=== PATIENT | male | born 1970 | race Hispanic/Latino ===

== ENCOUNTER 2018-01-23 01:10 | Emergency (ER) | payer BC ==
[2018-01-23] MEDS ORDERED: Ketorolac Tromethamine 60 MG/2 ML VIAL ONE (02:18)
[2018-01-23] MEDS ORDERED: Dexamethasone 10 MG/ML VIAL ONE (02:18)
--- NOTE | 2018-01-23 07:44 | RAD ---
LUMBAR SPINE SERIES THREE VIEWS: History: Low back pain that radiates to the left leg. FINDINGS: Vertebral bodies are normal in height. Degenerative osteophytes are seen in the lower lumbar spine. M inimal disc narrowing at L4-5. Pedicles appear intact. IMPRESSION: Mild arthritic changes of the spine. POS: [facility]
== END 2018-01-23 02:39 | disposition home or self-care (01) ==
LOC: ERS 01:10
DX: M54.16 Radiculopathy, lumbar region (principal); X50.9XXA Other and unspecified overexertion or strenuous movements or postures, initial encounter
CPT/HCPCS: 72100; J1100; J1885

== ENCOUNTER 2019-04-08 05:19 | Emergency (ER) | payer BC, OTHER ==
[2019-04-08] MEDS ORDERED: Aspirin Chewable 81 MG TAB ONE (05:52)
[2019-04-08 06:05] LABS: #Eosinphils 0.2 thou/uL (0.0-0.7); #Lymphocytes 2.8 thou/uL (1.20-3.40); #Monocytes 0.4 thou/uL (0.11-0.59); #Neutrophils 5.2 thou/uL (1.40-6.50); %Basophils 0.4 % (0.0-1.0); %Eosinophils 2.5 % (0.0-10.0); %Lymphocytes 31.8 % (21.0-51.0); %Monocytes 5.1 % (0.0-10.0); %Neutrophils 60.3 % (42.0-75.0); Hemoglobin 14.5 g/dL (14.0-18.0); Mean Corpuscular HGB CONC 32.4 g/dL (32.0-36.0); Mean Corpuscular Hemoglobin 29.6 pg (27.0-31.0); Mean Corpuscular Volume 91.3 fL (78.0-98.0); Mean Platelet Volume 7.2 fL (7.4-10.4); Platelet Count 282 thou/uL (130-400); RBC Distribution Width 12.1 % (11.5-14.5); Red Blood Cell (RBC) Count 4.89 mill/uL (4.70-6.10); White Blood Cell (WBC) Count 8.7 thou/uL (4.8-10.8)
[2019-04-08 06:27] LABS: ALT (SGPT) 19 U/L (8-55); AST (SGOT) 15 U/L (5-34); Alkaline Phosphatase 85 U/L (40-110); Anion Gap 12 mmol/L (10-20); BUN (Urea Nitrogen) 15 mg/dL (8.9-20.6); Bilirubin, Total 0.7 mg/dL (0.2-1.2); CK (CPK) 388 U/L (30-200); Calc. Creatinine Clearance 0 mL/min (70-130); Calcium 8.8 mg/dL (7.8-10.44); Carbon Dioxide 25 mmol/L (22-29); Chloride 107 mmol/L (98-107); Estimated GFR-MDRD 86; Globulin 3.1 g/dL (2.4-3.5); Glucose 145 mg/dL (70-105); Lipase 41 U/L (8-78); Potassium 3.4 mmol/L (3.5-5.1); Protein, Total 7.1 g/dL (6.0-8.3); Sodium 141 mmol/L (136-145)
--- NOTE | 2019-04-08 07:11 | CT ---
CTA CHEST WITH CONTRAST: Date: 04/08/2019 COMPARISON: None. HISTORY: Chest pain that started around midnight on the left side of the chest. TECHNIQUE: Multiple contiguous axial images were obtained in a CTA of the chest with contrast per pulmonary embo lism protocol. 3D oblique MIP reformats and direct coronal reformats were performed. FINDINGS: The pulmonary arteries are well opacified without filling defects to suggest pulmonary emboli. The he art is normal in size without focal cardiac abnormality. No hilar or mediastinal lymphadenopathy are seen. No pneumothorax or pleural effusions seen. No infiltrates are seen in the lungs. No suspicious pulmon brett nodules are seen. The visualized subdiaphragmatic structures are unremarkable. The bones and chest wall soft tissues ar e unremarkable. IMPRESSION: No evidence of pulmonary thromboembolism. POS: [facility]
--- NOTE | 2019-04-08 07:34 | RAD ---
EXAM: Single view of the chest HISTORY: Chest pain COMPARISON: None FINDINGS: Single view of the chest shows a normal sized cardiomediastinal silhouette. There is no marianela dence of consolidation, mass, or pleural effusion. The bones are unremarkable. IMPRESSION: No evidence of acute cardiopulmonary disease
[2019-04-08] MEDS ORDERED: Iopamidol-370 76% 500 ML 1 ML ONE (13:54)
--- NOTE | 2019-04-12 17:34 | EKG ---
Test Reason : Blood Pressure : / mmHG Vent. Rate : 073 BPM Atrial Rate : 073 BPM P-R Int : 174 ms QRS Dur : 082 ms QT Int : 398 ms P-R-T Axes : 038 041 016 degrees QTc Int : 438 ms Normal sinus rhythm with sinus arrhythmia Possible Left atrial enlargement Borderline ECG Confirmed by CARLEEN ROCK M.D. ([id number]), production editor MADDIE LING ([id number] on 04/12/2019 5:34:05 PM Referred By: Confirmed By:CARLEEN ROCK M.D.
== END 2019-04-08 06:58 | disposition home or self-care (01) ==
LOC: ERS 05:19
DX: R07.9 Chest pain, unspecified (principal); E11.9 Type 2 diabetes mellitus without complications; I10 Essential (primary) hypertension
CPT/HCPCS: 71045; 71275; 80053; 82550; 83690; 84484; 85025; 93005; Q9967

== ENCOUNTER 2019-07-29 11:38 | Emergency (ER) | payer OTHER ==
[2019-07-29 22:23] LABS: SARS-CoV-2 MS2 Positive; SARS-CoV-2 N Gene Negative; SARS-CoV-2 S Gene Negative; SARS-CoV-2 orf1ab Negative
== END 2019-07-29 13:23 | disposition home or self-care (01) ==
LOC: ERS 11:38
DX: Z20.828 Contact with and (suspected) exposure to other viral communicable diseases (principal); E11.9 Type 2 diabetes mellitus without complications; I10 Essential (primary) hypertension
CPT/HCPCS: 87635; 99283; U0003

== ENCOUNTER 2019-08-24 12:03 | Emergency (ER) | payer OTHER ==
[2019-08-25 13:56] LABS: SARS-CoV-2 MS2 Positive; SARS-CoV-2 N Gene Negative; SARS-CoV-2 S Gene Negative; SARS-CoV-2 orf1ab Negative
== END 2019-08-24 12:32 | disposition home or self-care (01) ==
LOC: ERS 12:03
DX: Z20.828 Contact with and (suspected) exposure to other viral communicable diseases (principal); E11.9 Type 2 diabetes mellitus without complications; I10 Essential (primary) hypertension
CPT/HCPCS: 87635; 99283; U0003

== ENCOUNTER 2023-05-02 03:40 | Emergency (ER) | payer OTHER ==
[2023-05-02] MEDS ORDERED: Ondansetron PF 4 MG/2 ML Vial ONE (03:53)
[2023-05-02] MEDS ORDERED: Ketorolac Tromethamine 30 MG (1 mL) VIAL ONE (03:53)
[2023-05-02 04:00] LABS: #Eosinphils 0.2 thou/uL (0.0-0.7); #Monocytes 0.6 thou/uL (0.11-0.59); #Neutrophils 6.5 thou/uL (1.40-6.50); %Basophils 0.4 % (0.0-1.0); %Eosinophils 2.2 % (0.0-10.0); %Lymphocytes 27.7 % (21.0-51.0); %Monocytes 5.4 % (0.0-10.0); Hematocrit 47.1 % (42.0-52.0); Mean Corpuscular Hemoglobin 29.9 pg (27.0-31.0); Mean Platelet Volume 9.2 fL (7.4-10.4); Platelet Count 311 10x3/uL (130-400); Red Blood Cell (RBC) Count 5.35 mill/uL (4.70-6.10); White Blood Cell (WBC) Count 10.2 10x3/uL (4.8-10.8)
[2023-05-02] MEDS ORDERED: Morphine 4 MG/ML VIAL ONE (04:22)
[2023-05-02 04:25] LABS: ALT (SGPT) 16 U/L (8-55); AST (SGOT) 16 U/L (5-34); Albumin 4.5 g/dL (3.5-5.0); Alkaline Phosphatase 117 U/L (40-110); Anion Gap 13 mmol/L (10-20); BUN (Urea Nitrogen) 9 mg/dL (8.4-25.7); Bilirubin, Total 0.6 mg/dL (0.2-1.2); Calc. Creatinine Clearance 0 mL/min (70-130); Calcium 9.3 mg/dL (7.8-10.44); Carbon Dioxide 26 mmol/L (22-29); Chloride 102 mmol/L (98-107); Estimated GFR 103; Globulin 3.4 g/dL (2.4-3.5); Glucose 143 mg/dL (70-105); Potassium 3.7 mmol/L (3.5-5.1); Protein, Total 7.9 g/dL (6.0-8.3); Sodium 137 mmol/L (136-145)
[2023-05-02 05:43] LABS: Bacteria/HPF None Seen HPF (None Seen); Bilirubin Negative (Negative); Blood, Urine Negative (Negative); CAUTI Indications for Culture Pelvic or flank pain; Clarity Clear (Clear); Glucose, Urine (Dipstick) Normal (Negative); Ketone, Urine Negative (Negative); Leukocyte Negative Leu/uL (Negative); Nitrite Negative (Negative); Protein, Urine (Dipstick) 10 mg/dL (Neg-Trace); RBC/HPF 0-3 HPF (0-3); Specific Gravity, Urine 1.026 (1.002-1.036); Squamous Epithelial 0-3 HPF (0-3); WBC/HPF 0-3 HPF (0-3); pH, Urine 5.5 (5.0-9.0)
[2023-05-02 05:49] LABS: Urine Culture Reflex No No
== END 2023-05-02 06:03 | disposition home or self-care (01) ==
LOC: ERS 03:40
DX: R10.9 Unspecified abdominal pain (principal); R11.2 Nausea with vomiting, unspecified; Z55.6 Problems related to health literacy; Z87.19 Personal history of other diseases of the digestive system
CPT/HCPCS: 74176; 80053; 81001; 85025; 96361; 96374; 96375; J1885; J2270; J2405

== ENCOUNTER 2023-05-02 19:57 | Inpatient (IN) | payer OTHER ==
[2023-05-02 22:42] LABS: #Monocytes 0.9 thou/uL (0.11-0.59); #Neutrophils 13.2 thou/uL (1.40-6.50); %Basophils 0.3 % (0.0-1.0); %Lymphocytes 6.6 % (21.0-51.0); %Monocytes 5.6 % (0.0-10.0); %Neutrophils 87.2 % (42.0-75.0); Hematocrit 45.4 % (42.0-52.0); Hemoglobin 15.6 g/dL (14.0-18.0); Mean Corpuscular HGB CONC 34.4 g/dL (32.0-36.0); Mean Corpuscular Hemoglobin 29.7 pg (27.0-31.0); Mean Corpuscular Volume 86.5 fl (78.0-98.0); Platelet Count 273 10x3/uL (130-400); RBC Distribution Width 12.9 % (11.5-14.5); Red Blood Cell (RBC) Count 5.25 mill/uL (4.70-6.10); White Blood Cell (WBC) Count 15.1 10x3/uL (4.8-10.8)
[2023-05-02] MEDS ORDERED: Ondansetron PF 4 MG/2 ML Vial ONE (22:57)
[2023-05-02] MEDS ORDERED: Morphine 4 MG/ML VIAL ONE (22:57)
[2023-05-02 23:03] LABS: Troponin I Less than 0.010 ng/mL (< 0.028)
[2023-05-02 23:05] LABS: ALT (SGPT) 15 U/L (8-55); AST (SGOT) 17 U/L (5-34); Albumin 4.4 g/dL (3.5-5.0); Alkaline Phosphatase 103 U/L (40-110); Anion Gap 12 mmol/L (10-20); BUN (Urea Nitrogen) 8 mg/dL (8.4-25.7); Calc. Creatinine Clearance 0 mL/min (70-130); Calcium 9.4 mg/dL (7.8-10.44); Carbon Dioxide 25 mmol/L (22-29); Chloride 104 mmol/L (98-107); Estimated GFR 104; Globulin 3.4 g/dL (2.4-3.5); Glucose 166 mg/dL (70-105); Lipase 21 U/L (8-78); Protein, Total 7.8 g/dL (6.0-8.3); Sodium 137 mmol/L (136-145)
[2023-05-03] MEDS ORDERED: Piperacillin/Tazobactam 3.375 GM VIAL ONE (00:54)
[2023-05-03] MEDS ORDERED: Sodium Chloride 0.9% 100 ML ONE (00:54)
[2023-05-03] MEDS ORDERED: Ondansetron PF 4 MG/2 ML Vial IVP PRN ×2 (02:30→19:39)
[2023-05-03] MEDS: Morphine 4 MG/ML VIAL SLOW IVP PRN (02:41)
[2023-05-03] MEDS: Lactated Ringer's 1,000 ML IV SCH ×2 (02:45→20:33)
[2023-05-03] MEDS: Piperacillin/Tazobactam 3.375 GM in Sodium Chloride 0.9% 100 ML IVPB SCH ×2 (05:28→12:43)
[2023-05-03] MEDS: Ketorolac Tromethamine 30 MG (1 mL) VIAL IVP PRN (12:44)
[2023-05-03] MEDS ORDERED: PROPOFOL 20 ML ONE (14:12)
[2023-05-03] MEDS ORDERED: fentaNYL PF 100 MCG/2 ML SYRINGE ONE (14:12)
[2023-05-03] MEDS ORDERED: EPINEPHrine 1 MG/ML VIAL ONE (14:13)
[2023-05-03] MEDS ORDERED: Bupivacaine 0.25% HCL 30 ML VIAL ONE (14:13)
[2023-05-03] MEDS ORDERED: SUGAMMADEX SODIUM 200 MG/2 ML VIAL ONE (17:52)
[2023-05-03] MEDS ORDERED: PHENYLEPHRINE-NS 100 MCG/ML 10 ML SYRINGE ONE (18:14)
[2023-05-03] MEDS ORDERED: ePHEDrine Sulfate 50 MG/10 ML VIAL ONE (18:14)
[2023-05-03] MEDS ORDERED: Dexamethasone 20 MG/5 ML VIAL ONE (18:14)
[2023-05-03] MEDS ORDERED: Ketorolac Tromethamine 30 MG (1 mL) VIAL ONE (18:19)
[2023-05-03] MEDS ORDERED: Ondansetron HCl/PF 4 MG/2 ML Vial IVP PRN (19:37)
[2023-05-03] MEDS ORDERED: Promethazine HCl 25 MG/ML VIAL IM PRN (19:37)
[2023-05-03] MEDS ORDERED: Morphine 4 MG/ML VIAL SLOW IVP PRN (19:38)
[2023-05-03 23:11] VITALS: BMI 29.2
[2023-05-04] MEDS: HYDROcodone/Acetaminophen 7.5/325 mg Tablet PO PRN (01:17)
[2023-05-04 04:15] LABS: #Monocytes 0.5 thou/uL (0.11-0.59); %Basophils 0.1 % (0.0-1.0); %Lymphocytes 6.4 % (21.0-51.0); %Monocytes 4.3 % (0.0-10.0); %Neutrophils 88.8 % (42.0-75.0); Hematocrit 38.8 % (42.0-52.0); Mean Corpuscular HGB CONC 33.5 g/dL (32.0-36.0); Mean Corpuscular Volume 89.4 fl (78.0-98.0); Mean Platelet Volume 9.6 fL (7.4-10.4); Platelet Count 229 10x3/uL (130-400); Red Blood Cell (RBC) Count 4.34 mill/uL (4.70-6.10); White Blood Cell (WBC) Count 11.3 10x3/uL (4.8-10.8)
[2023-05-04 05:00] LABS: ALT (SGPT) 44 U/L (8-55); AST (SGOT) 58 U/L (5-34); Albumin 3.3 g/dL (3.5-5.0); Alkaline Phosphatase 72 U/L (40-110); Anion Gap 12 mmol/L (10-20); BUN (Urea Nitrogen) 10 mg/dL (8.4-25.7); Bilirubin, Total 0.8 mg/dL (0.2-1.2); Calc. Creatinine Clearance 121 mL/min (70-130); Calcium 8.7 mg/dL (7.8-10.44); Carbon Dioxide 24 mmol/L (22-29); Chloride 106 mmol/L (98-107); Estimated GFR 95; Glucose 189 mg/dL (70-105); Potassium 4.4 mmol/L (3.5-5.1); Protein, Total 6.3 g/dL (6.0-8.3); Sodium 138 mmol/L (136-145)
[2023-05-04] MEDS: Ibuprofen 200 MG TAB PO SCH (08:48)
[2023-05-04] MEDS: traMADol HCl 50 MG TAB PO PRN (08:48)
[2023-05-04] MEDS: Acetaminophen 500 MG TAB PO SCH (12:33)
[2023-05-04] MEDS ORDERED: Acetaminophen 500 MG TAB PO PRN (15:39)
[2023-05-04 15:41] VITALS: BP 111/70; TEMP 97.8
[2023-05-04] MEDS ORDERED: Acetaminophen 500 MG TAB PO SCH (15:45)
[2023-05-04] MEDS ORDERED: Ibuprofen 600 MG TAB PO PRN (16:08)
[2023-05-04] MEDS ORDERED: traMADol HCl 50 MG TAB PO PRN (16:15)
[2023-05-05] MEDS ORDERED: LevoFLOXacin 500 MG TAB PO SCH (06:00)
== END 2023-05-04 17:55 | disposition home or self-care (01) | DRG 419 ==
LOC: ERS 19:57 → SJJU 05-03 01:29 → OBSVTOIN 05-03 01:29
PROVIDERS: ADMIT Surgery; ATTEND Surgery
PROC: 0FT44ZZ Resection of Gallbladder, Percutaneous Endoscopic Approach (ICD-10-PCS; principal; 2023-05-03)
PROC: 3E033XZ Introduction of Vasopressor into Peripheral Vein, Percutaneous Approach (ICD-10-PCS; 2023-05-03)
DX: K80.00 Calculus of gallbladder with acute cholecystitis without obstruction (principal); E66.9 Obesity, unspecified; Z98.84 Bariatric surgery status; Z90.49 Acquired absence of other specified parts of digestive tract; Z98.890 Other specified postprocedural states; Z87.891 Personal history of nicotine dependence; Z68.29 Body mass index [BMI] 29.0-29.9, adult; R10.9 Unspecified abdominal pain; R11.2 Nausea with vomiting, unspecified; Z55.6 Problems related to health literacy; Z87.19 Personal history of other diseases of the digestive system
CPT/HCPCS: 36415; 74176; 76705; 80053; 81001; 83690; 84484; 85025; 88304; 93005; 96361; 96365; 96374; 96375; C1713; J0171; J0665; J1100; J1885; J2270; J2405; J2543; J2704; J3490; J7120

== ENCOUNTER 2024-11-05 16:18 | Emergency (ER) | payer OTHER | END 2024-11-05 18:13 | disposition home or self-care (01) | LOC: ERS 16:18 | DX: M25.552 Pain in left hip (principal); M25.562 Pain in left knee; G89.29 Other chronic pain; E11.9 Type 2 diabetes mellitus without complications | CPT/HCPCS: 99283 ==